=== PATIENT | male | born 1990 | race Caucasian/White ===

== ENCOUNTER 2018-05-14 22:16 | Emergency (ER) | payer OTHER ==
[~2018-05-14] VITALS: Ht 177.8 cm; Wt 79.4 kg
[2018-05-15] MEDS ORDERED: PROTONIX40 MG PO (01:42)
== END 2018-05-15 01:50 | disposition home or self-care (01) ==
LOC: ER 22:16
DX: T62.8X1A Toxic effect of other specified noxious substances eaten as food, accidental (unintentional), initial encounter (principal); R11.2 Nausea with vomiting, unspecified; Y92.89 Other specified places as the place of occurrence of the external cause